=== PATIENT | female | born 1970 | race Caucasian/White ===

== ENCOUNTER → 2018-09-27 | Outpatient (CLI) | payer BC ==
--- NOTE | 2018-10-04 09:46 | MM ---
Reason for exam: screening (asymptomatic). Last mammogram was performed 1 year and 1 month ago. History: Patient is nulliparous. Physical Findings: Nurse did not find any significant physical abnormalities on exam. MG 3D Screening Mammo W/Cad Bilateral CC and MLO view(s) were taken. Prior study comparison: August 16, 2017, bilateral MG 3d screening mammo w/cad. June 03, 2016, bilateral MG 3d screening mammo w/cad. The breast tissue is heterogeneously dense. This may lower the sensitivity of mammography. No significant changes when compared with prior studies. ASSESSMENT: Negative, BI-RAD 1 RECOMMENDATION: Routine screening mammogram of both breasts in 1 year.
== END | disposition home or self-care (01) ==
LOC: RADMAMWWP 13:01
PROVIDERS: ATTEND Clinical Nurse Specialist Women's Health
DX: Z12.31 Encounter for screening mammogram for malignant neoplasm of breast (principal)
CPT/HCPCS: 77063; 77067

== ENCOUNTER → 2018-10-04 | Outpatient (CLI) | payer BC | END | disposition home or self-care (01) | LOC: RADMAMWWP 08:59 | PROVIDERS: ATTEND Obstetrics & Gynecology | DX: Z53.9 Procedure and treatment not carried out, unspecified reason (principal) ==

== ENCOUNTER → 2019-10-04 | Outpatient (CLI) | payer BC ==
--- NOTE | 2019-10-05 13:57 | MM ---
Reason for exam: screening (asymptomatic). Last mammogram was performed 1 year ago. History: Patient is nulliparous. Physical Findings: A clinical breast exam by your physician is recommended on an annual basis and results should be correlated with mammographic findings. MG 3D Screening Mammo W/Cad Bilateral CC and MLO view(s) were taken. Prior study comparison: September 27, 2018, bilateral MG 3d screening mammo w/cad. August 16, 2017, bilateral MG 3d screening mammo w/cad. The breast tissue is extremely dense which could obscure a lesion on mammography. There is no discrete abnormality. No significant changes when compared with prior studies. ASSESSMENT: Negative, BI-RAD 1 RECOMMENDATION: Routine screening mammogram of both breasts in 1 year.
== END | disposition home or self-care (01) ==
LOC: RADMAMWWP 10:53
PROVIDERS: ATTEND Obstetrics & Gynecology
DX: Z12.31 Encounter for screening mammogram for malignant neoplasm of breast (principal)
CPT/HCPCS: 77063; 77067

== ENCOUNTER → 2021-08-17 | Outpatient (CLI) | payer BC ==
--- NOTE | 2021-08-19 12:04 | MM ---
Reason for exam: screening (asymptomatic). Last mammogram was performed 1 year and 10 months ago. History: Patient is nulliparous. Taking progesterone for 4 years. Physical Findings: A clinical breast exam by your physician is recommended on an annual basis and results should be correlated with mammographic findings. MG 3D Screening Mammo W/Cad Bilateral CC and MLO view(s) were taken. Prior study comparison: October 04, 2019, bilateral MG 3d screening mammo w/cad. September 27, 2018, bilateral MG 3d screening mammo w/cad. The breast tissue is heterogeneously dense. This may lower the sensitivity of mammography. Posterior left upper outer quadrant focal asymmetry is more defined. ASSESSMENT: Incomplete: need additional imaging evaluation, BI-RAD 0 RECOMMENDATION: Special view mammogram of the left breast. (3D) If lesion persists on supplemental views, image directed ultrasound is recommended. [facility] will attempt to contact patient to return for supplemental views and ultrasound if indicated.
== END | disposition home or self-care (01) ==
LOC: RADMAMWWP 11:56
PROVIDERS: ATTEND Obstetrics & Gynecology
DX: Z12.31 Encounter for screening mammogram for malignant neoplasm of breast (principal)
CPT/HCPCS: 77063; 77067

== ENCOUNTER → 2021-09-03 | Outpatient (CLI) | payer BC ==
--- NOTE | 2021-09-03 12:05 | MM ---
Reason for exam: additional evaluation requested from abnormal screening. Last mammogram was performed 1 month ago. History: Patient is nulliparous. Taking progesterone for 4 years. Physical Findings: Nurse did not find any significant physical abnormalities on exam. MG 3D Work Up W/Cad LT Spot compression CC, spot compression MLO, and ML view(s) were taken of the left breast. Prior study comparison: August 17, 2021, bilateral MG 3d screening mammo w/cad. October 04, 2019, bilateral MG 3d screening mammo w/cad. The breast tissue is heterogeneously dense. This may lower the sensitivity of mammography. 1.7cm circumscribed lobulated low density nodular asymmetry remains in the upper outer quadrant. These results were verbally communicated with the patient and result sheet given to the patient on 09/03/21 ASSESSMENT: Incomplete: need additional imaging evaluation, BI-RAD 0 RECOMMENDATION: Ultrasound of the left breast.
--- NOTE | 2021-09-03 12:09 | USB ---
Reason for exam: additional evaluation requested from abnormal screening. History: Patient is nulliparous. Taking progesterone for 4 years. US Breast Workup Limited LT Technologist: Jackie Ward Left limited breast ultrasound including focal area of concern, retroareolar and axilla demonstrates no cystic or solid lesion seen. Scanned 12-3 o'clock. These results were verbally communicated with the patient and result sheet given to the patient on 09/03/21. ASSESSMENT: Probably benign, BI-RAD 3 RECOMMENDATION: Follow-up diagnostic mammogram of the left breast in 6 months.
== END | disposition home or self-care (01) ==
LOC: RADMAMWWP 10:06
PROVIDERS: ATTEND Obstetrics & Gynecology
DX: R92.8 Other abnormal and inconclusive findings on diagnostic imaging of breast (principal)
CPT/HCPCS: 77061; 77065

== ENCOUNTER → 2022-03-09 | Outpatient (CLI) | payer BC ==
--- NOTE | 2022-03-09 14:51 | MM ---
Reason for Exam: Follow-up at short interval from prior study. Last screening mammogram was performed 7 month(s) ago. Patient History: Menarche at age 15. Patient has no children. Patient used Progesterone for 4 years. Last menstrual period: 02/26/2022 Risk Values: Mary 5 year model risk: 1.0%. NCI Lifetime model risk: 10.0%. Prior Study Comparison: 10/04/2019 Bilateral Screening Mammogram, [facility]. 08/17/2021 Bilateral Screening Mammogram, [facility]. 09/03/2021 Left Diagnostic Mammogram, [facility]. Tissue Density: Left: The breast tissue is heterogeneously dense. This may lower the sensitivity of mammography. Findings: Analyzed By CAD. Obscured nodularity upper outer quadrant left breast middle to posterior depth remains unchanged for 6 months. The densities are made more apparent on the 3-D images. Continued follow-up is recommended. Overall Assessment: Probably benign, BI-RAD 3 Management: Diagnostic Mammogram of both breasts in 6 months. 1. Six-month follow-up diagnostic bilateral mammograms (annual exam right breast and total one-year follow-up left breast). 2. Patient should continue monthly self breast exams. A clinical breast exam by your physician is recommended on an annual basis. 3. This exam should not preclude additional follow-up of suspicious palpable abnormalities. Electronically signed and approved by: Lizandro Emery M.D. Radiologist
== END | disposition home or self-care (01) ==
LOC: RADMAMWWP 14:13
PROVIDERS: ATTEND Obstetrics & Gynecology
DX: R92.8 Other abnormal and inconclusive findings on diagnostic imaging of breast (principal)
CPT/HCPCS: 77061; 77065

== ENCOUNTER → 2022-09-15 | Outpatient (CLI) | payer BC ==
--- NOTE | 2022-09-15 13:22 | MM ---
Reason for Exam: Follow-up at short interval from prior study. Last mammogram was performed 1 year(s) and 1 month(s) ago. Patient History: Menarche at age 15. Patient has no children. Patient used Progesterone for 4 years. Last menstrual period: 09/10/2022 Risk Values: Mary 5 year model risk: 1.1%. NCI Lifetime model risk: 9.9%. Prior Study Comparison: 02/15/2012 Bilateral Screening Mammogram, [facility]. 03/05/2013 Bilateral Screening Mammogram, [facility]. 04/09/2014 Bilateral Screening Mammogram, [facility]. 05/27/2015 Bilateral Screening Mammogram, [facility]. 06/03/2016 Bilateral Screening Mammogram, [facility]. 08/16/2017 Bilateral Screening Mammogram, [facility]. 09/27/2018 Bilateral Screening Mammogram, [facility]. 10/04/2019 Bilateral Screening Mammogram, [facility]. 08/17/2021 Bilateral Screening Mammogram, [facility]. 09/03/2021 Left Diagnostic Mammogram, [facility]. 09/03/2021 Left Diagnostic Ultrasound, [facility]. 03/09/2022 Left MG 3D diag mammo w/cad LT, [facility]. Tissue Density: The breast tissue is heterogeneously dense. This may lower the sensitivity of mammography. Findings: Analyzed By CAD. Similar appearing left breast nodularity in the left breast middle/posterior depth right upper outer quadrant. No new suspicious masses, calcifications or distortions. Overall Assessment: Benign, BI-RAD 2 Management: Screening Mammogram of both breasts in 1 year. A clinical breast exam by your physician is recommended on an annual basis and results should be correlated with mammographic findings. This exam should not preclude additional follow-up of suspicious palpable abnormalities. Results were given to the patient verbally at the time of exam. Electronically signed and approved by: London Borja DO
== END | disposition home or self-care (01) ==
LOC: RADMAMWWP 12:55
PROVIDERS: ATTEND Obstetrics & Gynecology
DX: R92.8 Other abnormal and inconclusive findings on diagnostic imaging of breast (principal)
CPT/HCPCS: 77062; 77066

== ENCOUNTER → 2023-02-04 | Outpatient (CLI) | payer BC ==
[2023-02-04 20:04] LABS: African American GFR (CKD) 117.1 (60.0-200.0); Anion Gap 8.8 mmol/L (10.00-18.00); Carbon Dioxide 27.2 mmol/L (20.0-27.5); Potassium 4.3 mmol/L (3.5-5.5)
[2023-02-04 22:02] LABS: Basophils # (A) 0.07 X 10*3/uL (0.00-0.10); Basophils % (A) 0.9 %; Eosinophils # (A) 0.04 X 10*3/uL (0.04-0.35); Eosinophils % (A) 0.5 %; HCT 40.2 % (37.2-46.3); HGB 12.8 g/dL (12.0-15.0); Immature Grans, Automated 0.2 %; Lymphocytes # (A) 2.12 X 10*3/uL (0.90-5.00); Lymphocytes % (A) 26.4 %; MCHC 31.8 g/dL (32.0-37.0); MCV 100.5 fL (80.0-97.0); Mean Platelet Volume 13.2 fL (9.5-12.2); Monocytes # (A) 0.52 X 10*3/uL (0.20-1.00); Monocytes % (A) 6.5 %; NRBC Per 100 WBC 0 /100 WBCS (0.0-0.0); Neutrophils # (A) 5.25 X 10*3/uL (1.80-7.70); Neutrophils % (A) 65.5 %; Platelet Count 227 X 10*3/uL (140-440); WBC 8.02 X 10*3/uL (4.50-10.00)
== END | disposition home or self-care (01) ==
LOC: LABPAT 13:19
PROVIDERS: ATTEND Obstetrics & Gynecology Obstetrics
DX: Z01.812 Encounter for preprocedural laboratory examination (principal); N85.2 Hypertrophy of uterus; D25.9 Leiomyoma of uterus, unspecified; R10.2 Pelvic and perineal pain
CPT/HCPCS: 36415; 80051; 82565; 82947; 84520; 85025; 87086

== ENCOUNTER 2023-02-08 09:28 | Day surgery (SDC) | payer BC ==
[2023-02-03 14:56] VITALS: BMI 25.7
[2023-02-08] MEDS ORDERED: ONDANSETRON 4 MG/2 ML VIAL ONE (09:48)
[2023-02-08] MEDS ORDERED: LACTATED RINGERS 1,000 ML IV ONE ×2 (10:03→14:44)
[2023-02-08 10:19] LABS: Glucose,Whole Blood 97 mg/dL (70-110)
[2023-02-08] MEDS ORDERED: DEXAMETHASONE SOD PHOSPHATE 4 MG/ML 1 ML VIAL IVP ONE (10:29)
[2023-02-08] MEDS ORDERED: ONDANSETRON 4 MG/2 ML VIAL IVP ONE ×2 (10:29→15:35)
[2023-02-08] MEDS ORDERED: MIDAZOLAM 2 MG/2 ML VIAL IVP ONE ×2 (10:41→10:55)
[2023-02-08] MEDS ORDERED: fentaNYL (PF) 50 MCG/ML 2 ML AMP IVP ONE ×2 (10:41→10:55)
[2023-02-08 10:55] VITALS: RESP 16
--- NOTE | 2023-02-08 11:19 | P.HPOB ---
History of Present Illness H&P Date: 02/08/23 Chief Complaint: uterine fibroids, pelvic pain This is a 52yo G0 the presents for RAVH, b/l salpingectomy with diagnostic cystoscopy possible open to complete the procedure. she has a known enlarged uterus 11cm with 8 cm pedunculated fibroid calcified in nature. she does have a h/o abnormal pap smears and subsequently had a LEEP procedure in 2004. menses regular with a moderate flow currently using a vasectomy for control. she is desirous of definitive treatment givne the size of the fibroid, and enlarged uterus. Review of Systems Constitutional: Denies chills, Denies fatigue, Denies fever Ears, nose, mouth and throat: Denies headache Cardiovascular: Denies leg edema Respiratory: Denies dyspnea Gastrointestinal: Denies constipation, Denies diarrhea, Denies nausea, Denies vomiting Genitourinary: Reports pelvic pain, Denies Menstruation: Reports period normal Past Medical History Additional Past Medical History / Comment(s): uterine fibroids,low blood sugar at times History of Any Multi-Drug Resistant Organisms: None Reported Additional Past Surgical History / Comment(s): LEEP Past Anesthesia/Blood Transfusion Reactions: No Reported Reaction Additional Past Anesthesia/Blood Transfusion Reaction / Comment(s): no hx blood transfusion Smoking Status: Never smoker - Past Family History Mother Family Medical History: No Reported History Father Family Medical History: Cancer Medications and Allergies Home Medications Medication Instructions Recorded Confirmed Type ALPRAZolam [Xanax] 0.25 mg PO DAILY PRN 02/03/23 02/08/23 History Escitalopram [Lexapro] 10 mg PO QAM 02/03/23 02/08/23 History Ibuprofen [Advil] 200 mg PO Q8HR PRN 02/03/23 02/03/23 History Thyroid,Pork [Mcdaniel Thyroid] 90 mg PO QAM 02/03/23 02/08/23 History Allergies Allergy/AdvReac Type Severity Reaction Status Date / Time tetracycline Allergy Rash/Hives Verified 02/08/23 09:58 erythromycin base AdvReac Nausea & Verified 02/08/23 09:58 Vomiting Exam Osteopathic Statement: *. No significant issues noted on an osteopathic structural exam other than those noted in the History and Physical/Consult. Vital Signs Temp Pulse Resp BP Pulse Ox 02/08/23 10:55 74 16 138/78 99 02/08/23 10:07 97.9 F 69 18 141/66 73 L Intake and Output 02/07/23 02/08/23 02/08/23 22:59 06:59 14:59 Other: Weight 72.6 kg Targeted physical exam is performed and state in general this a well-nourished well-developed non female in no acute distress, breathing is nonlabored, heart has regular rate and rhythm, abdomen is soft and nontender, on genitourinary exam the external genitalia is normal for age, the vaginal necrosis noted to be pink and well rugated the uterus is noted to be slightly enlarged the posterior mass. Bilateral adnexa are without masses. Assessment and Plan (1) Uterine fibroid Current Visit: Yes Status: Acute Code(s): D25.9 - LEIOMYOMA OF UTERUS, UNSPECIFIED SNOMED Code(s): 72193827 (2) Pelvic pain Current Visit: Yes Status: Acute Code(s): R10.2 - PELVIC AND PERINEAL PAIN SNOMED Code(s): 32960737 Plan: 52 yo G0 that presents for robotic cyst vaginal hysterectomy, bilateral salpin gectomy, possible bilateral salpingo-oophorectomy, possible open. Patient is counseled on risks of surgery. Risks are discussed including but not limited to infection, bleeding, damage to bladder, bowel, ureteric injury. Patient states understanding and wishes to proceed. All questions are answered to patient's satisfaction.
[2023-02-08] MEDS ORDERED: fentaNYL (PF) 50 MCG/ML 2 ML AMP ONE (11:45)
[2023-02-08] MEDS ORDERED: ROCURONIUM 10 MG/ML (5 ML VIAL) IV ONE (11:45)
[2023-02-08] MEDS ORDERED: PROPOFOL 10 MG/ML 20 ML VIAL IV ONE (11:45)
[2023-02-08] MEDS ORDERED: ROPIVACAINE 5 MG/ML 30 ML VIAL ONE (11:45)
[2023-02-08] MEDS ORDERED: LIDOCAINE 2% INJ 20 MG/ML (2 ML VIAL) ONE (11:45)
[2023-02-08] MEDS ORDERED: GLYCOPYRROLATE 0.2 MG/ML 2 ML VIAL ONE (11:45)
[2023-02-08] MEDS ORDERED: SODIUM CHLORIDE 0.9% (PF) 10 ML VIAL ONE (11:45)
[2023-02-08] MEDS ORDERED: NEOSTIGMINE 1 MG/ML 10 ML VIAL ONE (11:45)
[2023-02-08] MEDS ORDERED: HYDROmorphone (PF) 1 MG/ML ONE (11:45)
[2023-02-08] MEDS ORDERED: SUCCINYLCHOLINE CHLORIDE 200 MG/10 ML VIAL IV ONE (11:45)
[2023-02-08] MEDS ORDERED: BUPIVACAINE (PF) 0.25% 30 ML VIAL SQ ONE ×2 (12:49)
--- NOTE | 2023-02-08 14:20 | P.ANPRN ---
Procedure Note - Anesthesia - Nerve Block Performed Bilateral Erector Spinae Single Time Out Performed: Yes (1040) Date of Procedure: 02/08/23 Procedure Start Time: 10:41 Procedure Stop Time: 10:47 Location of Patient: PreOp Indication: Acute Post-Operative Pain, Requested by Surgeon Specifically requested for management of pain by : Carmen Jimenes Sedation Type: Sedate with meaningful contact maintained Preparation: Sterile Prep Position: Prone Catheter: None Needle Types: Pajunk Needle Gauge: 21 Ultrasound used to visualize needle placement: Yes Ultrasound used to observe medication spread: Yes Injectate: 0.5% Ropivacaine (see comment for volume) (15cc + 15cc nacl pf each side) Blood Aspirated: No Pain Paresthesia on Injection Noted: No Resistance on Injection: Normal Image Stored and Saved: Yes Events: Uneventful and Well Tolerated
[2023-02-08] MEDS ORDERED: ONDANSETRON 4 MG/2 ML VIAL IVP PRN (14:47)
[2023-02-08] MEDS ORDERED: SIMETHICONE 80 MG CHEWABLE PO PRN (14:47)
[2023-02-08] MEDS ORDERED: Acetaminophen-Codeine 300-30mg TAB PO PRN ×2 (14:47)
[2023-02-08] MEDS ORDERED: ACETAMINOPHEN IV (For NPO) 1,000 MG in EMPTY BAG 1 BAG IVPB ONE (14:47)
--- NOTE | 2023-02-08 14:55 | P.OP ---
Date of Procedure: 02/08/23 Preoperative Diagnosis: Enlarged uterus, uterine fibroids, pelvic pain Postoperative Diagnosis: Same Procedure(s) Performed: Robotic-assisted vaginal hysterectomy, bilateral salpingo-oophorectomy, diagnostic cystoscopy, myomectomy Anesthesia: ESTEVAN Surgeon: Carmen Jimenes Wood Heel Cementer #1: Carrie Haynes Estimated Blood Loss (ml): 50 IV fluids (ml): 1,400 Urine output (ml): 600 (Clear yellow throughout) Pathology: other (Uterus cervix multiple pieces of fibroid, bilateral fallopian tubes and ovaries) Condition: stable Disposition: PACU Indications for Procedure: Enlarged uterus with fibroids Operative Findings: Grossly enlarged uterus with posterior uterine fibroids, bilateral ovarian cysts. Normal-appearing omentum pelvic anatomy, normal upper abdomen Description of Procedure: Patient was taken back to the operating suite where general anesthesia was obtained without difficulty by the anesthesia department. She was prepped and draped in the normal sterile fashion in the dorsal lithotomy position. A Bar catheter was placed under sterile technique. A weighted speculum posterior vaginal vault the anterior lip the cervix is visualized and grasped with a single-tooth tenaculum. A V care uterine made blade was advanced into the cervix as a means to miniplate the uterus throughout the procedure. V care was placed in the usual fashion the balloon was insufflated with air and all instrument removed from the patient's vaginal vault. Attention was then turned the patient's abdomen where approximately 2 finger breaths above the umbilicus a small skin incision is made. Through this incision the Veress needle is placed. Once the Veress needle was deemed to be in the proper position with a drop of CO2 pressure with insufflation of CO2 gas CO2 insufflation was allowed to occur. Approximately 3 L of gas or used to obtain pneumoperitoneum. At this time the additional port sites are placed these are placed 10 cm lateral and 3 syringes inferior midline port. These are 8 mm ports placed under direct visualization. In the left upper quadrant a 12 mm trocar and sleeve is placed under direct visual station. At this time the da Samara robot was docked in the usual fashion. The operative arms are now placed. In the right operative arm the monopolar scissors, in the left operative arm the bipolar forceps is placed. Attention was then turned to the patient's left infundibulopelvic ligament which was coagulated distally and proximally and divided. This continued through the broad and toward the round with good visualization of the lateral sidewall in the fibroids. The round ligament was coagulated distally and proximal plane divided. Hemostasis was appreciated. The bladder flap from the left was then created using some sharp and blunt dissection. At this time attention was then turned to the patient's left adnexa cystic changes of the ovary were appreciated the left infundibulopelvic ligament was visualized coagulated distally approximately divided. This continued through the broad ligament and toward the round ligament. The round ligament was coagulated distally and proximally and divided. The bladder flap from the right was then created using sharp and blunt dissection. A Ray-Sheryl was then introduced into the abdomen is means to dissect the bladder further away from the operating field. Ray-Sheryl was then removed without difficulty. The right adnexa was removed in whole placed in an Endo Catch bag and removed from the left upper quadrant port site. The trocar was then removed, and replaced with removal of the Endo Catch bag. At this time will at a setting rest of the uterine artery on the left was visualized coagulated and transected. Any further points of bleeding were made hemostatic with the Bovie. This was then repeated on the opposite side. At this time the blood source to the uterus was transected in the posterior uterine fibroids were transected sharply. Once the posterior fibroids were removed colpotomy incision was performed in a circumferential fashion. The uterus left ovary and fallopian tube were delivered through the vaginal opening. The right ovary had been removed previously with an Endo Catch bag. At this time the uterine fibroids the remained into the pelvis were transected into 5 pieces. These pieces were then removed vaginally. The pelvis was then copiously irrigated. Hemostasis was appreciated. The vaginal cuff was closed with [id number] sutures of 0 Vicryl 5. The pelvis was then copiously irrigated and hemostasis was appreciated. At this time of cystoscopy was performed. Attention was then turned the patient's Bar catheter which was removed without difficulty. Clear yellow urine was noted to be in the Bar catheter at the time of removal. The cystoscope was performed. Cystoscope was placed through the urethra and toward the bladder bladder bubble was appreciated both ureteral orifices were noted to be spilling clear yellow urine. A complete survey of the bladder revealed an intact cavity. Cystoscope was removed and the Bar catheter was replaced. All counts were noted be correct 2 at the end of the procedure. Patient tolerated procedure well and was taken the recovery room awake in stable condition.
[2023-02-08] MEDS ORDERED: IBUPROFEN IV 800 MG in SODIUM CHLORIDE 0.9% 250 ML IV ONE (15:30)
[2023-02-08] MEDS ORDERED: HYDROmorphone 0.5 MG/0.5 ML SYRINGE IVP ONE (15:36)
[2023-02-08] MEDS ORDERED: ZOLPIDEM 5 MG TAB PO PRN (17:18)
[2023-02-08] MEDS: ACETAMINOPHEN TAB 325 MG TAB PO PRN (20:31)
[2023-02-08] MEDS: SENNOSIDES-DOCUSATE SODIUM 1 EACH TAB PO SCH (20:31)
[2023-02-08] MEDS: IBUPROFEN 600 MG TAB PO PRN (23:17)
[2023-02-09] MEDS: ACETAMINOPHEN TAB 325 MG TAB PO PRN (03:30)
[2023-02-09 07:14] LABS: Basophils % (A) 0 %; Eosinophils % (A) 0 %; HCT 39.1 % (34.0-46.0); HGB 12.4 gm/dL (11.4-16.0); Lymphocytes # (A) 1.8 k/uL (1.0-4.8); Lymphocytes % (A) 21 %; MCH 31.3 pg (25.0-35.0); MCHC 31.7 g/dL (31.0-37.0); MCV 98.6 fL (80.0-100.0); Mean Platelet Volume 12.4; Monocytes # (A) 0.3 k/uL (0-1.0); Monocytes % (A) 4 %; Neutrophils # (A) 6.3 k/uL (1.3-7.7); Neutrophils % (A) 74 %; Platelet Count 163 k/uL (150-450); RBC 3.97 m/uL (3.80-5.40); RDW 14.8 % (11.5-15.5); WBC 8.6 k/uL (3.8-10.6)
[2023-02-09 07:48] LABS: Large Platelets Present
--- NOTE | 2023-02-09 08:55 | P.DS ---
Providers Date of admission: 02/08/2023 Expected date of discharge: 02/09/23 Attending physician: Carmen Jimenes Primary care physician: Jose Almanza - Discharge Diagnosis(es) (1) Uterine fibroid Current Visit: Yes Status: Acute (2) Pelvic pain Current Visit: Yes Status: Acute (3) S/P hysterectomy with oophorectomy Current Visit: Yes Status: Acute Hospital Course: 52-year-old patient that presented to the hospital yesterday for scheduled robotic cyst vaginal hysterotomy. Patient had a known history of enlarged uterus uterine fibroids. Patient wished definitive treatment given enlarged uterine fibroids. For full details on this patient see the dictated history and physical. Patient was taken back to the operating suite where robotic assist vaginal hysterectomy and bilateral sopping was performed without difficulty. Findings of the surgery were reviewed with patient in detail this morning. The right ovary appeared cystic in nature and was sent separately to pathology for complete evaluation. Surgery went well without complication. On this postop day #1 she is doing well. She is ambulating and voiding without difficulty. Pain is well controlled, she denies nausea vomiting is tolerating clear liquids. She states she is feeling well and wishes discharge home. Patient Condition at Discharge: Good Plan - Discharge Summary Discharge Rx Participant: No New Discharge Prescriptions: No Action ALPRAZolam [Xanax] 0.25 mg PO DAILY PRN PRN Reason: Anxiety Ibuprofen [Advil] 200 mg PO Q8HR PRN PRN Reason: Pain Thyroid,Pork [Pemberton Thyroid] 90 mg PO QAM Escitalopram [Lexapro] 10 mg PO QAM Discharge Medication List ALPRAZolam [Xanax] 0.25 mg PO DAILY PRN 02/03/23 [History] Escitalopram [Lexapro] 10 mg PO QAM 02/03/23 [History] Ibuprofen [Advil] 200 mg PO Q8HR PRN 02/03/23 [History] Thyroid,Pork [Pemberton Thyroid] 90 mg PO QAM 02/03/23 [History] Follow up Appointment(s)/Referral(s): Carmen Jimenes DO [Doctor of Osteopathic Medicine] - 2 Weeks Patient Instructions/Handouts: Laparoscopic Hysterectomy (GEN), Laparoscopic Hysterectomy (DC) Activity/Diet/Wound Care/Special Instructions: No tub baths or intercourse until 8 weeks postoperatively. Patient's call the office to make a routine postoperative appointment in 2 weeks. Patient is counseled on bleeding cautions post hysterectomy. Patient is counseled if she has any concerns prior to HER-2 week postoperative visit she is urged to call the office. [id number] ibuprofen and Tylenol as needed for pain.
[2023-02-09] MEDS: IBUPROFEN 600 MG TAB PO PRN (08:58)
[2023-02-09 09:04] VITALS: BP 130/80; PULSE 76; TEMP 98.4
[2023-02-09] MEDS: SENNOSIDES-DOCUSATE SODIUM 1 EACH TAB PO SCH (10:21)
[2023-02-09] MEDS ORDERED: ACETAMINOPHEN TAB 325 MG TAB PO PRN (14:48)
== END 2023-02-09 10:18 | disposition home or self-care (01) ==
LOC: OR 09:28 → 4FBP 14:54 → OR 02-09 10:18
PROVIDERS: ATTEND Obstetrics & Gynecology Obstetrics
DX: D25.1 Intramural leiomyoma of uterus (principal); N85.2 Hypertrophy of uterus; N83.8 Other noninflammatory disorders of ovary, fallopian tube and broad ligament; Z98.890 Other specified postprocedural states; Z79.899 Other long term (current) drug therapy; Z88.1 Allergy status to other antibiotic agents
CPT/HCPCS: 81025; 64999; 86900; 86901; 88305; 85025; 86850; 88307; 58552; J2250; J0330; J1100; J2710; J0690; J2405; J3010; J1170 ×2; J2795; J0131; J1741; J2704; J2001

== ENCOUNTER → 2023-07-12 | Outpatient (CLI) | payer BC ==
--- NOTE | 2023-07-12 13:36 | MM ---
Reason for Exam: Follow-up at short interval from prior study. Last screening mammogram was performed 10 month(s) ago. Patient History: Menarche at age 15. Patient has no children. Left ovary removed at age 53. Right ovary removed at age 53. Hysterectomy at age 53. Postmenopausal. Risk Values: Mary 5 year model risk: 1.1%. NCI Lifetime model risk: 9.7%. Prior Study Comparison: 08/17/2021 Bilateral Screening Mammogram, [facility]. 09/03/2021 Left Diagnostic Mammogram, [facility]. 09/03/2021 Left Diagnostic Ultrasound, [facility]. 03/09/2022 Left MG 3D diag mammo w/cad LT, [facility]. 09/15/2022 Bilateral MG 3D diag mammo w/cad [facility], [facility]. Tissue Density: The breast tissue is heterogeneously dense. This may lower the sensitivity of mammography. Findings: Analyzed By CAD. No suspicious calcifications or architectural distortion either breast. No new suspicious mass within the right breast. Circumscribed high density lobulated mass within the upper outer left breast measuring up to 4.4 cm approximately 8 cm the nipple. Overall Assessment: Incomplete: need additional imaging evaluation, BI-RAD 0 Management: Diagnostic Breast Ultrasound of the left breast. A clinical breast exam by your physician is recommended on an annual basis and results should be correlated with mammographic findings. This exam should not preclude additional follow-up of suspicious palpable abnormalities. Results were given to the patient verbally at the time of exam. Note on Mary scores and lifetime risk: 1. A Mary score greater than 3% is considered moderate risk. If this is the case, consider specialist referral to assess eligibility for a risk reducing agent. If overall lifetime risk for the development of breast cancer is 20% or higher, the patient may qualify for future screening with alternating mammogram and breast MRI. Electronically signed and approved by: Papi Head D.O.
--- NOTE | 2023-07-12 14:08 | USB ---
Reason for Exam: Additional evaluation requested from prior study. Patient History: Menarche at age 15. Patient has no children. Left ovary removed at age 53. Right ovary removed at age 53. Hysterectomy at age 53. Postmenopausal. Risk Values: Mary 5 year model risk: 1.1%. NCI Lifetime model risk: 9.7%. Technique: Method: Targeted. Prior Study Comparison: 09/03/2021 Left Diagnostic Mammogram, [facility]. 03/09/2022 Left MG 3D diag mammo w/cad LT, [facility]. 09/15/2022 Bilateral MG 3D diag mammo w/cad [facility], [facility]. Findings: The upper outer quadrant of the left breast, the axilla of the left breast and the retroareolar of the left breast were scanned. Targeted ultrasound of the left breast from 12-3 o'clock with additional evaluation the nipple and axilla was performed. There is a cluster of cysts within the left breast at 2:00 8 cm from the nipple measuring 4.3 x 1.5 x 3.6 cm. No internal color flow identified. Overall Assessment: Probably benign, BI-RAD 3 Management: Diagnostic Breast Ultrasound of the left breast in 6 months. A clinical breast exam by your physician is recommended on an annual basis and results should be correlated with mammographic findings. This exam should not preclude additional follow-up of suspicious palpable abnormalities. Results were given to the patient verbally at the time of exam. Electronically signed and approved by: Papi Head D.O.
== END | disposition home or self-care (01) ==
LOC: RADMAMWWP 13:00
PROVIDERS: ATTEND Surgery
DX: R92.333 Mammographic heterogeneous density, bilateral breasts (principal); Z78.0 Asymptomatic menopausal state
CPT/HCPCS: 77062; 77066

== ENCOUNTER → 2024-01-06 | Outpatient (CLI) | payer BC ==
--- NOTE | 2024-01-06 13:58 | USB ---
Reason for Exam: Follow-up at short interval from prior study. Patient History: Menarche at age 15. Patient has no children. Left ovary removed at age 53. Right ovary removed at age 53. Hysterectomy at age 53. Postmenopausal. Risk Values: Mary 5 year model risk: 1.1%. NCI Lifetime model risk: 9.7%. Technique: Method: Targeted. Prior Study Comparison: 03/09/2022 Left MG 3D diag mammo w/cad [facility], [facility]. 09/15/2022 Bilateral MG 3D diag mammo w/cad [facility], [facility]. 07/12/2023 Bilateral MG 3D diag mammo w/cad [facility], [facility]. Findings: The upper outer quadrant of the left breast, the axilla of the left breast and the retroareolar of the left breast were scanned. Technique utilized:US breast limited LT Image; Ultrasound imaging of: All 4 quadrants, the retroareolar region and axilla. No evidence for organizing fluid collection or mass. Overall Assessment: Negative, BI-RAD 1 Management: Screening Mammogram of both breasts in 1 year. A clinical breast exam by your physician is recommended on an annual basis and results should be correlated with mammographic findings. This exam should not preclude additional follow-up of suspicious palpable abnormalities. Results were given to the patient verbally at the time of exam. Electronically signed and approved by: London Borja DO
== END | disposition home or self-care (01) ==
LOC: RADUSWWP 12:59
PROVIDERS: ATTEND Family Medicine
DX: R92.8 Other abnormal and inconclusive findings on diagnostic imaging of breast (principal); Z78.0 Asymptomatic menopausal state

== ENCOUNTER → 2025-01-15 | Outpatient (CLI) | payer BC ==
--- NOTE | 2025-01-15 13:41 | MM ---
Reason for Exam: Screening (asymptomatic). Last mammogram was performed 1 year(s) and 6 month(s) ago. Patient History: Menarche at age 15. Patient has no children. Left ovary removed at age 53. Right ovary removed at age 53. Hysterectomy at age 53. Postmenopausal. Currently using Estrogen. Risk Values: Mary 5 year model risk: 1.2%. NCI Lifetime model risk: 9.6%. Prior Study Comparison: 03/09/2022 Left MG 3D diag mammo w/cad LT, [facility]. 09/15/2022 Bilateral MG 3D diag mammo w/cad [facility], [facility]. 07/12/2023 Bilateral MG 3D diag mammo w/cad [facility], [facility]. Tissue Density: The breasts are heterogeneously dense, which may obscure small masses. Findings: Analyzed By CAD. There is a new group of indeterminate calcifications subareolar region right breast. Interval resolution of prior left breast circumscribed masses. Overall Assessment: Incomplete: need additional imaging evaluation, BI-RAD 0 Management: Diagnostic Mammogram of the right breast. Return for spot magnification and 3-D true lateral views right breast. Patient should continue monthly self-breast exams. A clinical breast exam by your physician is recommended on an annual basis. This exam should not preclude additional follow-up of suspicious palpable abnormalities. Note on Mary scores and lifetime risk: 1. A Mary score greater than 3% is considered moderate risk. If this is the case, consider specialist referral to assess eligibility for a risk reducing agent. 2. If overall lifetime risk for the development of breast cancer is 20% or higher, the patient may qualify for future screening with alternating mammogram and breast MRI. [facility], , 01/15/2025 1:38 PM. Electronically signed and approved by: Yves Murrieta M.D.
== END | disposition home or self-care (01) ==
LOC: RADMAMWWP 13:07
PROVIDERS: ATTEND Obstetrics & Gynecology Obstetrics
DX: Z12.31 Encounter for screening mammogram for malignant neoplasm of breast (principal); R92.333 Mammographic heterogeneous density, bilateral breasts; Z78.0 Asymptomatic menopausal state
CPT/HCPCS: 77063; 77067

== ENCOUNTER → 2025-01-21 | Outpatient (CLI) | payer BC ==
--- NOTE | 2025-01-21 10:59 | MM ---
Reason for Exam: Additional evaluation requested from abnormal screening. Last screening mammogram was performed less than 1 month ago. Patient History: Menarche at age 15. Patient has no children. Left ovary removed at age 53. Right ovary removed at age 53. Hysterectomy at age 53. Postmenopausal. Currently using Estrogen. Bilateral Reduction. Risk Values: Mary 5 year model risk: 1.2%. NCI Lifetime model risk: 9.6%. Tissue Density: Right: There are scattered areas of fibroglandular density. Findings: Analyzed By CAD. Grouped Calcifications right breast retroareolar region slightly medial and superior. These are just beneath the skin surface on LM view. No other new suspicious masses, calcifications or distortions. Overall Assessment: Probably benign, BI-RAD 3 Management: Diagnostic Mammogram of the right breast in 6 months. Results were given to the patient verbally at the time of exam. Patient should continue monthly self-breast exams. A clinical breast exam by your physician is recommended on an annual basis. This exam should not preclude additional follow-up of suspicious palpable abnormalities. Note on Mary scores and lifetime risk: 1. A Mary score greater than 3% is considered moderate risk. If this is the case, consider specialist referral to assess eligibility for a risk reducing agent. 2. If overall lifetime risk for the development of breast cancer is 20% or higher, the patient may qualify for future screening with alternating mammogram and breast MRI. [facility], , 01/21/2025 10:57 AM. Electronically signed and approved by: London Borja DO
== END | disposition home or self-care (01) ==
LOC: RADMAMWWP 10:33
PROVIDERS: ATTEND Obstetrics & Gynecology Obstetrics
DX: R92.8 Other abnormal and inconclusive findings on diagnostic imaging of breast (principal); R92.321 Mammographic fibroglandular density, right breast; R92.1 Mammographic calcification found on diagnostic imaging of breast; Z78.0 Asymptomatic menopausal state
CPT/HCPCS: 77061; 77065